=== PATIENT | male | born 1980 | race Caucasian/White ===

== ENCOUNTER 2024-03-06 09:52 | Day surgery (SDC) | payer OTHER ==
[~2024-03-06] VITALS: Ht 172.7 cm; Wt 113.9 kg
[~2024-03-06 09:52] MED LIST: LR 1,000 ML IV SCH; Ondansetron 4 MG/2 ML VIAL IV PRN
[2024-03-06] MEDS ORDERED: CELEBREX 1100 MG/CAP PO (10:44)
[2024-03-06 11:00] VITALS: BP 134/90; PULSE 77; TEMP 97.6
[2024-03-06] MEDS ORDERED: Lidocaine PF 2% (20 MG/ML) 5 ML VIAL ONE (11:06)
[2024-03-06 11:40] VITALS: BP 119/82; PULSE 86
[2024-03-06 12:00] VITALS: BP 122/85; PULSE 90
[2024-03-06 12:15] VITALS: BP 138/85; PULSE 80
--- NOTE | 2024-03-06 16:34 | NUR ---
1140 PATIENT RETURNS TO [facility] [place] [facility] VIA CART. PT AWAKE AND ALERT. RESPIRATIONS UNLABORED. AMBULATED TO RECLINER CHAIR WITH 2:1 SBA. PT DENIES NAUSEA OR ABDOMINAL PAIN. HOOKED UP TO MONITOR AND VS OBTAINED. CALL LIGHT AT SIDE AND PRESENT. 1145 PATIENT TOLERATING COFFEE AND ICE CREAM WITHOUT NAUSEA OR DIFFICULTY SWALLOWING. 1200 IN ROOM SPEAKING WITH PATIENT. 1215 D/C INSTRUCTIONS REVIEWED WITH PATIENT. PT VERBALIZED UNDERSTANDING AND A COPY OF INSTRUCTIONS PROVIDED IN D/C FOLDER. 1230 PATIENT DRESSES SELF. 1240 PATIENT DISCHARGED FROM UNIT VIA W/C TO A PERSONAL VEHICLE. PT LEFT HOSPITAL IN STABLE CONDITION.
== END 2024-03-06 12:40 | disposition home or self-care (01) ==
LOC: SDCO 09:52
DX: R10.30 Lower abdominal pain, unspecified (principal); R19.7 Diarrhea, unspecified; K59.00 Constipation, unspecified; K64.0 First degree hemorrhoids; G47.33 Obstructive sleep apnea (adult) (pediatric); Z87.891 Personal history of nicotine dependence
CPT/HCPCS: J2704; J7120